=== PATIENT | male | born 2000 | race Caucasian/White ===

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

== ENCOUNTER 2020-03-22 03:04 | Outpatient (CLI) | payer OTHER, SELFPAY ==
[2020-03-22 09:04] LABS: HCT 45.9 % (40.0-50.0); HGB 15.7 g/dL (13.5-17.5); MCH 29.8 pg (27.0-33.0); MCHC 34.2 % (32.0-36.0); MCV 87.1 fL (80-95); MPV 9.8 fL (8.0-11.0); Platelet Count 268 10^3/uL (130-400); RBC 5.27 10^6/uL (4.36-5.78); RDW 12.2 % (11.8-14.1); RDW-SD 38.8 fL; WBC 7.21 10^3/uL (4.4-10.8)
[2020-03-22 09:21] LABS: Hemoglobin A1C 5.4 % (<5.7)
[2020-03-22 10:03] LABS: ALT 165 U/L (16-63); AST 64 U/L (15-37); Albumin 4.4 g/dL (3.4-5.0); Alkaline Phosphatase 98 U/L (46-116); Anion Gap 6.9 mmol/L (3-11); BUN 12 mg/dL (7-18); Bilirubin, Total 0.5 mg/dL (0.2-1.0); CO2 29.1 mmol/L (21.0-32.0); CREATININE 0.97 mg/dL (0.70-1.30); Calcium 9.5 mg/dL (8.5-10.1); Calculated LDL 138 mg/dL (<100); Chloride 101 mmol/L (98-107); Cholesterol 190 mg/dL (<200); Glucose 95 mg/dL (74-106); HDL Cholesterol 30 mg/dL (40-60); Potassium 4.6 mmol/L (3.5-5.1); Sodium 137 mmol/L (136-145); TSH (W/Ref FT4) 7.18 uIU/mL (0.36-3.74); Total Protein 7.7 g/dL (6.4-8.2); Triglyceride 112 mg/dL (<150)
== END 2020-03-22 03:24 ==
PROVIDERS: PCP Pediatrics; Visit Provider Pediatrics
DX: R55 Syncope and collapse (principal)
CPT/HCPCS: 36415; 80053; 80061; 82533; 85027; 83036; 84439; 84443

== ENCOUNTER 2020-03-30 02:49 | Outpatient (CLI) | payer OTHER, SELFPAY ==
[2020-03-31 10:54] LABS: Adrenocorticotropic Hormone, P 18 pg/mL
[2020-04-01 15:01] LABS: Thyroglobulin Antibody 38 U/mL (<=60); Thyroperoxidase Antibody 213 U/mL (<=60)
== END 2020-03-30 03:09 ==
PROVIDERS: PCP Pediatrics; Visit Provider Pediatrics
DX: E07.89 Other specified disorders of thyroid (principal); R79.89 Other specified abnormal findings of blood chemistry
CPT/HCPCS: 36415; 82533; 86376; 82024

== ENCOUNTER 2020-05-07 09:11 | Outpatient (CLI) | payer OTHER, SELFPAY ==
[2020-05-07 10:42] LABS: TSH 3.11 uIU/mL (0.36-3.74)
[2020-05-07 11:04] LABS: FREE T4 1.29 ng/dL (0.76-1.46)
== END 2020-05-07 09:31 ==
PROVIDERS: PCP Pediatrics; Visit Provider Pediatrics
DX: E06.3 Autoimmune thyroiditis (principal)
CPT/HCPCS: 36415; 84439; 84443

== ENCOUNTER 2020-10-05 03:16 | Outpatient (CLI) | payer OTHER, SELFPAY ==
[2020-10-05 10:31] LABS: Hemoglobin A1C 5.2 % (<5.7)
[2020-10-05 11:08] LABS: ALT 94 U/L (16-63); AST 41 U/L (15-37); Albumin 4.6 g/dL (3.4-5.0); Alkaline Phosphatase 118 U/L (46-116); Bilirubin, Direct 0.1 mg/dL (0.0-0.2); Bilirubin, Total 0.5 mg/dL (0.2-1.0); FREE T4 1.37 ng/dL (0.76-1.46); TSH 1.72 uIU/mL (0.36-3.74)
[2020-10-05 14:00] LABS: Calculated LDL 121 mg/dL (<100); Cholesterol 175 mg/dL (<200); HDL Cholesterol 27 mg/dL (40-60); Triglyceride 137 mg/dL (<150)
== END 2020-10-05 03:17 | disposition home or self-care (01) ==
LOC: LBO 03:17
PROVIDERS: PCP Pediatrics; Visit Provider Pediatrics
DX: E06.3 Autoimmune thyroiditis (principal); Q79.60 Ehlers-Danlos syndrome, unspecified
CPT/HCPCS: 36415; 80061; 80076; 83036; 84439; 84443

== ENCOUNTER 2022-02-10 01:46 | Outpatient (CLI) | payer OTHER, SELFPAY ==
[2022-02-10 12:10] LABS: ALT 97 U/L (16-63); AST 42 U/L (15-37); Alkaline Phosphatase 91 U/L (46-116); Bilirubin, Direct 0.1 mg/dL (0.0-0.2); Bilirubin, Total 0.4 mg/dL (0.2-1.0); FREE T4 1.15 ng/dL (0.76-1.46); TSH 2.06 uIU/mL (0.36-3.74); Total Protein 7.8 g/dL (6.4-8.2)
== END 2022-02-10 01:47 | disposition home or self-care (01) ==
LOC: LBO 01:47
PROVIDERS: PCP Pediatrics; Visit Provider Pediatrics
DX: R74.01 Elevation of levels of liver transaminase levels (principal); E06.3 Autoimmune thyroiditis
CPT/HCPCS: 36415; 80061; 80076; 84439; 84443

== ENCOUNTER 2022-10-05 02:10 | Outpatient (CLI) | payer OTHER, SELFPAY ==
[2022-10-05 10:07] LABS: ALT 119 U/L (16-63); AST 53 U/L (15-37); Alkaline Phosphatase 99 U/L (46-116); Anion Gap 9.6 mmol/L (3-11); BUN 11 mg/dL (7-18); Bilirubin, Total 0.5 mg/dL (0.2-1.0); CO2 27.4 mmol/L (21.0-32.0); CREATININE 0.9 mg/dL (0.70-1.30); Calcium 9.3 mg/dL (8.5-10.1); Calculated LDL 145 mg/dL (<100); Chloride 103 mmol/L (98-107); Cholesterol 197 mg/dL (<200); Estimated GFR 123.84 (mL/min/1.73m2); Glucose 100 mg/dL (74-106); HDL Cholesterol 31 mg/dL (40-60); Potassium 4.1 mmol/L (3.5-5.1); Sodium 140 mmol/L (136-145); TSH (W/Ref FT4) 3.72 uIU/mL (0.36-3.74); Total Protein 7.9 g/dL (6.4-8.2); Triglyceride 109 mg/dL (<150)
== END 2022-10-05 02:11 | disposition home or self-care (01) ==
LOC: LBO 02:10
PROVIDERS: Referring Provider Nurse Practitioner; Visit Provider Nurse Practitioner
DX: R06.3 Periodic breathing (principal); R78.6 Finding of steroid agent in blood; R74.01 Elevation of levels of liver transaminase levels
CPT/HCPCS: 36415; 80053; 80061; 84443

== ENCOUNTER 2023-05-13 14:59 | Emergency (ER) | payer OTHER, SELFPAY ==
--- NOTE | 2023-05-13 15:00 | ED.GENADUL_ITS ---
HPI General Date/Time Provider Initiated Documentation: 05/13/23 15:00 . HPI Narrative: MDM This is an overall very well-appearing normothermic and not tachycardic [id number] male with laceration to right index finger which will require primary closure with stitches in the ED following irrigation. Tetanus has been updated within the last 5 years so we will defer repeat tetanus immunization. No other injuries. No concerns for foreign body so will defer x-ray. Patient is not anticoagulated. Patient and I discussed return to the ED for streaking signs of infection foul-smelling drainage fevers or any concerns about his wound healing. He understood his return indications and we will follow-up in the ED with primary care or an urgent care in 7 to 10 days to have the stitches removed. Chronic conditions affecting the care of the patient: N/A History obtained from an outside historian: N/A External record review: N/A Medications: Acetaminophen ibuprofen Social determinants of health affecting disposition: N/A Management discussed with: N/A Treatment/interventions considered: N/A Response to therapies provided: N/A HPI This is a [id number] 23-year-old male not on any anticoagulants arriving to the emergency department in the setting of a laceration he sustained to his right index finger just prior to arrival. He was taking computer parts apart and cut his right index finger inadvertently. He received his tetanus immunization 2020. He denies any other injuries. He was wearing his prescription glasses at the time. He was in his usual state of health earlier today denies any fevers chills chest pain shortness of breath. Exam General: Well-appearing in no acute distress speaking in complete sentences. Head: Normocephalic, atraumatic. Eye: Extraocular eye movements intact. No conjunctival injection. No scleral icterus. Ear, nose, mouth, throat: Grossly normal inspection. Normal voice, handling secretions normally. Neck: Trachea midline. Cardiovascular: Well-perfused distal extremities. Respiratory: Nonlabored respiration. Gastrointestinal: Nondistended abdomen. Musculoskeletal: On the radial aspect of the right proximal index finger between the MCP and PIP joints there is a hemostatic approximately 3 cm linear laceration that violates the subcutaneous tissue. No foreign bodies. Patient has intact flexion and extension in his right index finger across the MCP, PIP, and DIP joints. He also has intact sensation in the right hand throughout the median, radial and ulnar nerve distributions. Cap refill less than 2 seconds in the right fingertips. Skin: Normal for age and race, grossly normal temperature and turgor. No acute rash. Neurologic: Alert and appropriate, no apparent acute deficits. Psychiatric: Mood and manner are appropriate. Grooming and personal hygiene are appropriate. Related Data Home Medications Medication Instructions Recorded Confirmed sertraline 50 mg tablet 50 mg PO DAILY #90 tabs 09/28/22 05/13/23 levothyroxine 100 mcg tablet See Rx Instructions .Route 04/17/23 05/13/23 .COMPLEX #90 tabs Previous Rx's Medication Instructions Recorded sertraline 50 mg tablet 50 mg PO DAILY #90 tabs 09/28/22 levothyroxine 100 mcg tablet See Rx Instructions .Route 04/17/23 .COMPLEX #90 tabs Allergies Allergy/AdvReac Type Severity Reaction Status Date / Time No Known Allergies Allergy Verified 05/13/23 15:05 General DARRICK: 4 Procedures Laceration Laceration 1: Size (cm): 3 Description: linear Depth: simple, single layer Local Anesthetic: Lidocaine 1% (Local infiltrate) and other anesthetic (Right index finger digital block) Amount of anesthesia used (mL): 3 Pre-repair: wound explored and irrigated extensively (Emergency department Aircraft Navigator Zeke irrigated the patient's wound at the sink) Skin layer closed with: nylon Size (cm): 5-0 (Prolene) Number of sutures: 5 Technique: simple, interrupted (2 simple interrupted) and other (3 vertical mattress) Medical Decision Making Quality:SDOH Health Related Social Needs: No Data to Display PFSH All Active Problems (Updated 05/13/23 @ 15:42 by Ritesh Ko MD) Laceration of right index finger (Acute) Well adult on routine health check (Acute) Body mass index (BMI) greater than 95th percentile (Acute) Elevated transaminase level (Acute) 10/04/ Dad with hx of fatty liver Tinnitus of both ears (Acute) 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 Light headedness (Chronic) Nml cardiology evaluation 05/06 Family history of brain aneurysm (Chronic) motherTomas Lobo had nml MRI/MRA 2018. Reviewed with neurosurgery. Consider repeat MRI in 1-2 decades. 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 rheumatology evaluation 11/24. Hearing loss (Acute 07/05/12) Worse in left ear. Followed by [facility] cardiology. Hearing aids. Medical History (Updated 05/13/23 @ 15:42 by Ritesh Ko MD) History of heart murmur in childhood Bi-Danlos syndrome Vision decreased Wears glasses Acne Pilonidal cyst Hearing loss Hx of febrile seizure < age 5 Surgical History Flushing teeth extracted 2018 Excision, Pilonidal Cyst x2 Circumcision Family History (Updated 08/31/22 @ 11:22 by Kathryn Partida) Mother Essential hypertension Anxiety Depression Diabetes Bi-Danlos syndrome Hypermobile type Father Essential hypertension Other Neoplasm Maternal Aunt Colon cancer Social History (Updated 09/28/22 @ 13:08 by Kenyetta Cao LPN) Smoking/Tobacco Use Status: Never Second Hand Exposure: No Smoking risk assessment performed?: Yes Alcohol Intake: never Details: monthly or less Drug use: Never Substance use type: does not use Counseling given: No Adopted: No Caregiver/Support person: No Foster care: No Household members: family Housing: house Number of Children: 0 number of grandchildren: 0 Education Level: college Details: Finishing degree at [employer], diploma by end of summer Do you need help understanding health information?: Never current occupation: student Pets and animals: No Sexually active: No Do you think of yourself as: bisexual Current gender identity: male What is your relationship status?: never How often do you talk on the phone with friends or family?: three or more times per week How often do you get together with friends or relatives?: three or more times per week Do you belong to any clubs or organized social groups?: no Panel score (0-1 are the most socially isolated patients): 1 What type of physical activity do you participate in: walking and additional Details: Hiking Duration: 30-45 minutes/day Frequency: daily Rebecca/Gnosticist: None Seatbelt use: always Helmet use: Yes Drive intox or ride w/intox power screwdriver operator: No Working smoke detector in home: Yes Fire extinguisher in home: Yes Carbon monox detector in home: Yes Do you feel safe at home: Yes Victim of physical abuse: No Discharge Plan Disposition Patient Disposition: Home Discharge Details Clinical Impression: Laceration of right index finger Primary Care Provider: Natalia Moore ED Provider: Ritesh Ko Home Meds and New Rx's Prescriptions: Continued sertraline 50 mg tablet 50 mg PO DAILY Qty: 90 3RF levothyroxine 100 mcg tablet See Rx Instructions .ROUTE .COMPLEX Qty: 90 1RF Dose Instruction: TAKE 1 TABLET BY MOUTH DAILY Rx Instructions: TAKE 1 TABLET BY MOUTH DAILY Discharge Instructions Instructions: Finger Laceration (ED) Additional Instructions: You were seen in the emergency department for your right index finger laceration which was closed with sutures that will need to be removed in 7 to 10 days. As we discussed, please keep your wound clean and dry and covered. Please do not get your wound wet soak in a tub or engage in any activities which could introduce dirt into your wound. You may return to the emergency department go to urgent care or go to your primary care provider in 7 to 10 days to have your stitches removed. As we discussed if you develop any foul-smelling drainage fevers streaking signs of infection or have any other concerns please return to the emergency department. For your pain please take medications as follows: 1. Take acetaminophen (Tylenol), 1,000 mg (two 500 mg tabs) every 6 hours [2. Take ibuprofen (Advil), 400 mg every 6 hours.]
[2023-05-13 15:02] VITALS: BP 115/76; PULSE 81; RESP 16; TEMP 37.4; O2SAT 96
[2023-05-13] MEDS: Acetaminophen 500 MG TAB 1000 MG PO (15:46)
[2023-05-13] MEDS: Ibuprofen 600 MG TAB PO (15:46)
== END 2023-05-13 16:00 | disposition home or self-care (01) ==
PROVIDERS: Emergency Provider Emergency Medicine; PCP Nurse Practitioner
DX: S61.210A Laceration without foreign body of right index finger without damage to nail, initial encounter (principal); W31.89XA Contact with other specified machinery, initial encounter; Y93.89 Activity, other specified
CPT/HCPCS: 12002; 99283

== ENCOUNTER 2023-05-20 12:05 | Emergency (ER) | payer OTHER, SELFPAY ==
[2023-05-20 12:09] VITALS: BP 149/83; PULSE 73; RESP 18; TEMP 36.7; O2SAT 96
--- NOTE | 2023-05-20 12:33 | W.ED.GENAD ---
HPI General Mode of arrival: ambulatory. Date/Time Provider Initiated Documentation: 05/20/23 12:23. Limitations to Documentation: no limitations. Information obtained by: patient. HPI Narrative: 23-year-old male here for suture removal. #5 sutures were placed 7 days ago to close laceration right second digit. Patient notes healing well with no signs of infection. Related Data Home Medications Medication Instructions Recorded Confirmed sertraline 50 mg tablet 50 mg PO DAILY #90 tabs 09/28/22 05/20/23 levothyroxine 100 mcg tablet See Rx Instructions .Route 04/17/23 05/20/23 .COMPLEX #90 tabs Previous Rx's Medication Instructions Recorded sertraline 50 mg tablet 50 mg PO DAILY #90 tabs 09/28/22 levothyroxine 100 mcg tablet See Rx Instructions .Route 04/17/23 .COMPLEX #90 tabs Allergies Allergy/AdvReac Type Severity Reaction Status Date / Time No Known Allergies Allergy Verified 05/20/23 12:13 General Stated Complaint: SutureRem DARRICK: 4 Exam Extrem Right upper extremity: hand (3cm wound rt 2nddigit healing, no erythema or discharge, sutures intact) Details: neuromotor exam normal, neurosensory exam normal and normal ROM of fingers Course Vital Signs Vital signs: Vital Signs Temperature 36.7 C 05/20/23 12:09 Pulse 73 05/20/23 12:09 Respiratory Rate 18 05/20/23 12:09 Blood Pressure 149/83 H 05/20/23 12:09 Pulse Oximetry 96 05/20/23 12:09 Temperature 36.7 C 05/20/23 12:09 Temperature Source Temporal Artery Scan 05/20/23 12:09 Pulse 73 05/20/23 12:09 Respiratory Rate 18 05/20/23 12:09 Respiratory Effort Non-Labored 05/20/23 12:12 Blood Pressure 149/83 H 05/20/23 12:09 Blood Pressure Position Sitting 05/20/23 12:09 Pulse Oximetry 96 05/20/23 12:09 Oxygen Delivery Method Room Air 05/20/23 12:09 Oxygen Flow Rate 0 05/20/23 12:09 Pain Level 0 05/20/23 12:09 Medical Decision Making 23-year-old male presents 7 days status post primary closure laceration right second finger for suture removal. Wound healing well with no signs of infection. #5 sutures removed without complication. Sterile dressing applied. Usual customary discharge instructions reviewed with the patient. Quality:SDOH Health Related Social Needs: No Data to Display PFSH All Active Problems (Updated 05/20/23 @ 12:34 by Isiah Yeboah MD) Visit for suture removal (Acute) Laceration of right index finger (Acute) Well adult on routine health check (Acute) Body mass index (BMI) greater than 95th percentile (Acute) Elevated transaminase level (Acute) 10/04/ Dad with hx of fatty liver Tinnitus of both ears (Acute) 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 Light headedness (Chronic) Nml cardiology evaluation 05/06 Family history of brain aneurysm (Chronic) mother. Yamil had nml MRI/MRA 2018. Reviewed with neurosurgery. Consider repeat MRI in 1-2 decades. 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 rheumatology evaluation 11/24. Hearing loss (Acute 07/05/12) Worse in left ear. Followed by [facility] cardiology. Hearing aids. Medical History (Updated 05/20/23 @ 12:34 by Isiah Yeboah MD) History of heart murmur in childhood Bi-Danlos syndrome Vision decreased Wears glasses Acne Pilonidal cyst Hearing loss Hx of febrile seizure < age 5 Surgical History [place] teeth extracted 2018 Excision, Pilonidal Cyst x2 Circumcision Family History (Updated 08/31/22 @ 11:22 by Kathryn Partida) Mother Essential hypertension Anxiety Depression Diabetes Bi-Danlos syndrome Hypermobile type Father Essential hypertension Other Neoplasm Maternal Aunt Colon cancer Social History (Updated 09/28/22 @ 13:08 by Kenyetta Cao LPN) Smoking/Tobacco Use Status: Never Second Hand Exposure: No Smoking risk assessment performed?: Yes Alcohol Intake: never Details: monthly or less Drug use: Never Substance use type: does not use Counseling given: No Adopted: No Caregiver/Support person: No Foster care: No Household members: family Housing: house Number of Children: 0 number of grandchildren: 0 Education Level: college Details: Finishing degree at [employer], diploma by end of summer Do you need help understanding health information?: Never current occupation: student Pets and animals: No Sexually active: No Do you think of yourself as: bisexual Current gender identity: male What is your relationship status?: never How often do you talk on the phone with friends or family?: three or more times per week How often do you get together with friends or relatives?: three or more times per week Do you belong to any clubs or organized social groups?: no Panel score (0-1 are the most socially isolated patients): 1 What type of physical activity do you participate in: walking and additional Details: Hiking Duration: 30-45 minutes/day Frequency: daily Rebecca/Nondenominational: None Seatbelt use: always Helmet use: Yes Drive intox or ride w/intox cdl bulk driver: No Working smoke detector in home: Yes Fire extinguisher in home: Yes Carbon monox detector in home: Yes Do you feel safe at home: Yes Victim of physical abuse: No Discharge Plan Disposition Patient Disposition: Home Condition: Stable Discharge Details Clinical Impression: Visit for suture removal Primary Care Provider: Natalia Moore ED Provider: Isiah Yeboah Home Meds and New Rx's Prescriptions: Continued sertraline 50 mg tablet 50 mg PO DAILY Qty: 90 3RF levothyroxine 100 mcg tablet See Rx Instructions .ROUTE .COMPLEX Qty: 90 1RF Dose Instruction: TAKE 1 TABLET BY MOUTH DAILY Rx Instructions: TAKE 1 TABLET BY MOUTH DAILY Discharge Instructions Instructions: Stitches Removal (ED) Additional Instructions: Please contact your primary care physician to arrange follow-up as needed. Return to the ER immediately for any worsening or new concerning symptoms. Referrals: Natalia Moore NP [Primary Care Provider] -
== END 2023-05-20 12:40 | disposition home or self-care (01) ==
PROVIDERS: Emergency Provider Student in an Organized Health Care Education/Training Program; PCP Nurse Practitioner
DX: Z48.02 Encounter for removal of sutures (principal)

== ENCOUNTER 2024-01-07 03:33 | Outpatient (CLI) | payer OTHER, SELFPAY ==
[2024-01-07 10:21] LABS: Calculated LDL 144 mg/dL (<100); Cholesterol 203 mg/dL (<200); HDL Cholesterol 37 mg/dL (40-60); TSH (W/Ref FT4) 1.76 uIU/mL (0.36-3.74); Triglyceride 110 mg/dL (<150)
== END 2024-01-07 03:34 | disposition home or self-care (01) ==
LOC: LBO 03:34
PROVIDERS: PCP Nurse Practitioner; Visit Provider Nurse Practitioner
DX: E03.9 Hypothyroidism, unspecified (principal); E78.6 Lipoprotein deficiency; Z68.41 Body mass index [BMI] 40.0-44.9, adult
CPT/HCPCS: 36415; 80061; 84443